=== PATIENT | male | born 1950 | race Caucasian/White ===

== ENCOUNTER 2019-03-12 13:27 | Inpatient (IN) ==
[2019-03-12 14:31] LABS: ALLEN TEST YES; BE -4.7 mmoll (-3.0-3.0); BLOOD TYPE ARTERIAL; METHB 1.3 % (0.0-1.5); O2(CT) 18.6 mL/dL (15.0-23.0); PCO2(98.6) 34 mmHg (35-45); PO2(98.6) 55 mmHg (60-100); SAMPLE BLOOD; SAO2 92.6 % (95.0-100.0); pH(98.6) 7.37 (7.35-7.45)
[2019-03-12 14:33] LABS: MODALITY ROOM AIR
[2019-03-12 14:34] LABS: O2HB 88.5 % (95.0-99.0)
--- NOTE | 2019-03-12 14:34 | Diag Imaging Result Doc PS360 ---
CT HEAD W/O CONTRAST - 03/12/2019 INDICATION: Head injury COMPARISON: None FINDINGS: There is moderate diffuse cerebral atrophy. There is mild cerebral white matter chronic microvascular ischemia. There are old lacunae in the basal ganglia bilaterally. There is also a lacunar at the left side of the mel. No intracranial mass or hemorrhage. The skull is intact. The sinuses, mastoids, and middle ears are clear. IMPRESSION: No acute process. This exam was performed using automated exposure control, adjustment of mA or kV according to patient size, and/or use of iterative reconstruction technique Electronically signed by Bk Lau 03/12/2019 2:32 PM
--- NOTE | 2019-03-12 14:41 | Diag Imaging Result Doc PS360 ---
CHEST-PORTABLE - 03/12/2019 INDICATION: altered MSE, cough, ? fever COMPARISON: 03/08/2015 FINDINGS: The lungs are normally expanded and clear. Heart size and mediastinal contours are normal. No pneumothorax or pleural effusion. IMPRESSION: Negative exam. Electronically signed by Bk Lau 03/12/2019 2:39 PM
[2019-03-12 14:54] LABS: BASO# 0.01 X1000 (0.0-0.2); BASO% 0.1 % (0.0-0.8); EOS# 0.01 X1000 (0.0-0.7); EOS% 0.1 % (0.0-10.0); HEMOGLOBIN 14.5 g/dL (14.0-18.0); IMM GRAN# 0.03 X1000 (0.0-0.04); IMM GRAN% 0.3 % (0.0-0.5); LYMPH# 0.74 X1000 (1.2-3.4); LYMPH% 6.8 % (20.5-51.1); MCH 31.7 PG (27-31); MCV 96.3 FL (81-99); MONO% 5.5 % (1.7-9.3); MPV 9.6 FL (7.4-10.4); NEUT# 9.43 X1000 (1.4-6.5); NEUT% 87.2 % (42.2-75.2); PLT 227 X1000 (130-400); RBC 4.57 XMIL (4.7-6.1); RDW 12.7 % (11.5-14.5); WBC 10.82 X1000 (4.8-10.8)
[2019-03-12 15:12] LABS: INR 1.14; PROTIME 14.8 Seconds (11.0-16.0); PTT 27.2 Seconds (22.3-41.8)
[2019-03-12 15:33] LABS: AGAP 20; ALB/GLOB RATIO 1.5; ALBUMIN 4.6 g/dL (3.5-5.0); ALKALINE PHOSPHATASE 109 U/L (32-122); BUN 10 mg/dL (8-22); CALCIUM 9.3 mg/dL (8.8-10.2); CHLORIDE 97 mmol/L (98-107); COSMO 282; ESTIMATED GFR > 60; GLUCOSE 236 mg/dL (70-104); GOT 27 U/L (10-34); GPT 16 U/L (10-44); POTASSIUM 3.8 mmol/L (3.5-5.1); SODIUM 138 mmol/L (136-145); TCO2 21 mmol/L (25-35); TOTAL BILIRUBIN 0.63 mg/dL (0.20-1.00); TOTAL PROTEIN 7.7 g/dL (6.3-8.3)
[2019-03-12 15:34] LABS: CK PROFILE 720 U/L (24-204)
[2019-03-12 15:49] LABS: CK INDEX 1.8 (0.0-2.5); CK-MB 12.64 ng/mL (0.0-5.0)
[2019-03-12 16:34] LABS: URINE SOURCE CLEAN CATCH
[2019-03-12 16:39] LABS: BILIRUBIN URINE NEGATIVE (NEGATIVE); BLOOD URINE TRACE (NEGATIVE); COLOR YELLOW; GLUCOSE URINE 500 mg/dL (NEGATIVE); KETONE URINE 20 mg/dL (NEGATIVE); LEUKOCYTES URINE NEGATIVE (NEGATIVE); NITRITE URINE NEGATIVE (NEGATIVE); PROTEIN URINE TRACE mg/dL (NEGATIVE); SP GRAVITY URINE 1.019; TURBIDITY URINE HAZY (CLEAR); UR EPITHELIAL CELLS <10 /HPF (<10); URINE BACTERIA NEGATIVE /HPF; URINE RBC <10 /HPF (<10); URINE WBC <10 /HPF (<10); UROBILINOGEN URINE NORMAL (NORMAL)
[2019-03-12 16:58] LABS: UR AMPHETAMINES QUAL NONE DETECTED (NONE DETECT); UR BARBITUATES QUAL NONE DETECTED (NONE DETECT); UR BENZODIAZEPIN QUAL NONE DETECTED (NONE DETECT); UR CANNABINOIDS QUAL NONE DETECTED (NONE DETECT); UR COCAINE QUAL NONE DETECTED (NONE DETECT); UR METHADONE QUAL NONE DETECTED (NONE DETECT); UR OPIATES QUAL PRESUMPTIVE POSITIVE (NONE DETECT); UR OXYCODONE QUAL NONE DETECTED (NONE DETECT); UR PCP QUAL NONE DETECTED (NONE DETECT)
[2019-03-12] MEDS ORDERED: ZOSYN 3.375 GM in NS 50 ML IV ONE (17:00)
--- NOTE | 2019-03-12 19:05 | Diag Imaging Result Doc PS360 ---
CT ANGIOGRM PULMONARY ARTERIES - 03/12/2019 INDICATION: hypoxemia, altered TECHNIQUE: Axial CT images were obtained after administering intravenous contrast. Coronal MIP images were generated. COMPARISON: None FINDINGS: There is no pulmonary embolism. Heart and great vessels are normal. No adenopathy. Upper abdominal images are normal. There is moderate fluid/mucus opacification of all the bronchi of the lower lobes bilaterally. There is also some fluid or mucus in the distal trachea. No infiltrates throughout the lungs. No pneumothorax or pleural effusion. There are moderate degenerative changes of the spine. No acute or suspicious bony lesion. IMPRESSION: Significant fluid or mucus in the distal trachea and in the lower lobe airways bilaterally. Concerning for aspiration. No infiltrates in the lungs. Negative for pulmonary embolism. This exam was performed using automated exposure control, adjustment of mA or kV according to patient size, and/or use of iterative reconstruction technique Electronically signed by Bk Lau 03/12/2019 7:02 PM
[2019-03-12] MEDS ORDERED: NEURONTIN PO SCH (21:15)
[2019-03-12] MEDS ORDERED: NS 1,000 ML IV SCH (21:30)
[2019-03-12 23:20] LABS: CK INDEX 1.9 (0.0-2.5); CK-MB 12.26 ng/mL (0.0-5.0)
[2019-03-13] MEDS: ZOSYN 3.375 GM in NS 50 ML IV SCH ×4 (00:34→20:36)
[2019-03-13] MEDS: PROTONIX IV SCH ×2 (00:35→20:36)
--- NOTE | 2019-03-13 07:34 | HISTORY AND PHYSICAL ---
CHIEF COMPLAINT: Loss of consciousness. HISTORY OF PRESENT ILLNESS: Mr. Beth Marin is a 68-old male, who has a history of hypertension, diabetes mellitus, hyperlipidemia, and peripheral neuropathy. The patient gives a history of loss of consciousness, which occurred prior to admission via the ER. It is not exactly known when this occurred. The patient indicates that he was brought to the ER by EMS. He describes having confusion, headaches but no dizziness. He does have a number of bruises on his forehead. He claims that the loss of consciousness may have been related to gabapentin which he took. On presenting to the hospital, CT scan of the brain was unremarkable. . He had a CTA of the chest done also at the time of presentation which showed evidence of significant fluid or mucus in the distal trachea and in the lower lobe airways bilaterally concerning for aspiration. The patient has now been admitted to the floor for further management. PAST MEDICAL HISTORY: Diabetes mellitus, hypertension, hyperlipidemia, and peripheral neuropathy. SOCIAL HISTORY: He has a history of cigarette smoking. No alcohol or drug use. ALLERGIES: The patient is allergic to aspirin as well as gabapentin. PAST SURGICAL HISTORY: He has had left knee surgery and also rotator cuff surgery to the left shoulder. FAMILY HISTORY: Positive for cancer. MEDICATIONS: His medications include the following: Lorazepam 1 mg p.o. 3 times a day. Trazodone 200 mg p.o. at bedtime p.r.n Folic acid 1 mg p.o. daily. Gabapentin 200 mg p.o. 3 times a day. Lisinopril 40 mg p.o. daily. Multivitamin one daily. Paroxetine 20 mg p.o. daily. REVIEW OF SYSTEMS: Constitutional: No fever. S[employer]ACH[employer]ER: No headaches. Eyes: No blurred vision. Cardiovascular: No chest pain. Respiratory: Has some chronic shortness of breath. GI: Has nausea. : Has dysuria. Musculoskeletal: No joint pains. Hematology: Has bruising on the forehead. Endocrine: Has diabetes. No thyroid disease. Psychiatry: No anxiety or depression. Allergy/immunology: Has allergy symptoms. PHYSICAL EXAMINATION: VITAL SIGNS: Temperature 99.2 degrees, pulse 79, respiratory rate is 16, blood pressure is 164/81, oxygen saturation is 95%. HEENT: The patient has bruises on the forehead. He is anicteric. Extraocular movements intact. No oral lesions noted. NECK: No lymphadenopathy or thyromegaly. CARDIOVASCULAR: S1, S2. RESPIRATORY SYSTEM: Has evidence of good air entry bilaterally. ABDOMEN: Soft. Nontender. No masses felt. EXTREMITIES: No evidence of significant edema. CENTRAL NERVOUS SYSTEM: No obvious focal deficits noted. DIAGNOSTIC DATA: WBCs 10.82, hematocrit is 44, with a platelet count of 227,000. INR is 1.14. ABG 7.37/34/55/92.6%. Sodium 138, potassium is 3.8, chloride is 97, bicarb is 21, BUN is 10, creatinine is 1.0. CK is 662. Lactate is 6.2. UA shows less than 10 WBCs per high-power field. Urine drug screen positive for opiates. CTA of the chest shows significant fluid or mucus in the distal trachea as well as the lower the lower lobe airways bilaterally concerning for aspiration. Head CT, no acute process. Chest x-ray, negative exam. ASSESSMENT AND PLAN: 1. Syncope. Place the patient on telemetry and get serial cardiac enzymes. Maintain patient on intravenous fluids. Obtain an MRI of the brain, carotid Doppler study, EEG, as well as a 2D echo of the heart. I suspect this may be related to medication effect including gabapentin as well as lorazepam. We will hold off on both medications at this time. 2. Probable aspiration pneumonia. We will obtain sputum culture, blood culture, start patient on empiric antibiotics. 3. Rhabdomyolysis. Maintain patient on intravenous fluids. Follow up on CK levels. 4. Diabetes mellitus. Monitor blood sugar levels. Maintain patient on sliding scale insulin. Check hemoglobin A1c level. 5. Hypertension. Continue current antihypertensive regimen. 6. Deep vein thrombosis prophylaxis. Sequential compression devices. 7. Gastrointestinal prophylaxis. Proton pump inhibitor. cc: Rodrick Allen MD [facility]
--- NOTE | 2019-03-13 07:40 | EKG Report ---
Test Performed on : 03/13/2019 07:23:53 AM Test Reason : syncope Blood Pressure : / mmHG Vent. Rate : 091 BPM Atrial Rate : 091 BPM P-R Int : 134 ms QRS Dur : 102 ms QT Int : 382 ms P-R-T Axes : 050 042 066 degrees QTc Int : 469 ms Normal sinus rhythm. Normal ECG No previous ECGs available Confirmed by Juan LOAIZA, Ranjit ([id number]) on 03/14/2019 10:35:11 AM
[2019-03-13] MEDS: NS 1,000 ML IV SCH ×3 (08:00→23:15)
[2019-03-13 09:16] LABS: CK INDEX 1.3 (0.0-2.5); CK-MB 11.18 ng/mL (0.0-5.0)
[2019-03-13] MEDS: PRINIVIL PO SCH ×2 (10:14→10:17)
[2019-03-13] MEDS: TENORMIN PO SCH (10:14)
[2019-03-13] MEDS: FOLIC ACID PO SCH (10:14)
[2019-03-13] MEDS: THERA M PLUS PO SCH (10:14)
--- NOTE | 2019-03-13 10:35 | PROGRESS NOTE ---
DATE: 03/13/2019 SUBJECTIVE: The patient had a syncopal episode that quite possibly was a seizure. He tells me that his says that he was shaking all over. He does not remember a whole lot about it. Apparently, he was lying on the floor for a little while, and had what appears to be some rhabdomyolysis. Said he had a similar episode a couple of weeks ago that a neighbor saw, and that he shook all over at that time too. He was admitted yesterday for syncope and rhabdomyolysis. He has not mentioned seizures to anyone else before, has not mentioned this to Dr. Pope, his regular doctor. He says he does not drink alcohol. He has not had any brain injury that he knows of. MRI scan has already been ordered. Will order an EEG and Neurology consult. The patient says he has had this when he is taking gabapentin, and he had some sort of syncopal episode about a year ago when he took gabapentin for his peripheral neuropathy. He also takes Ativan. OBJECTIVE: Vital Signs: Blood pressure is 150/91, respirations 16, pulse 84, temperature 98.8 degrees Fahrenheit. HEENT: Normocephalic. EOMs intact. PERRLA. Throat clear. Lungs: Have a few rales anteriorly. Pulmonary arteriogram showed mucous plugging in the lungs, consistent with aspiration. Heart: Regular rate and rhythm without murmurs, gallops, friction rubs. Abdomen: Soft. Active bowel sounds. No organomegaly or tenderness. Neurological: The patient is a little slow with his thinking, but otherwise seems normal. Cranial nerves II through XII are intact grossly. LABORATORY DATA: White count 10,820. His blood gas when he came in showed a PO2 of 55, pCO2 of 34. Lactate elevated at 5.10. He is on antibiotics. Plasma lactate was 6.2. Urinalysis did show sugar. He does have diabetes. ASSESSMENT: 1. Syncope, quite possibly a grand mal seizure. 2. Possible aspiration pneumonia. 3. Rhabdomyolysis. 4. Diabetes mellitus. 5. Hypertension. PLAN: Will order things as above, and will monitor. Will give him IV fluids and IV antibiotics. cc: Jordi Sewell Jr, MD
[2019-03-13] MEDS: HUMULIN R SUBQ SCH ×2 (13:14→17:23)
[2019-03-13 13:54] LABS: CK INDEX 1.3 (0.0-2.5); CK-MB 10.67 ng/mL (0.0-5.0)
[2019-03-13] MEDS: SODIUM CHLORIDE 0.9% INJ SCH (20:36)
[2019-03-13] MEDS: PAXIL PO SCH (20:36)
[2019-03-14] MEDS: HUMULIN R SUBQ SCH ×5 (01:02→23:00)
[2019-03-14] MEDS: ZOSYN 3.375 GM in NS 50 ML IV SCH ×4 (03:53→20:18)
[2019-03-14] MEDS: LABETALOL IV PRN (05:14)
[2019-03-14] MEDS: PRINIVIL PO SCH (09:04)
[2019-03-14] MEDS: THERA M PLUS PO SCH (09:04)
[2019-03-14] MEDS: FOLIC ACID PO SCH (09:05)
[2019-03-14] MEDS: TENORMIN PO SCH (09:05)
[2019-03-14] MEDS: NS 1,000 ML IV SCH ×3 (09:06→23:00)
--- NOTE | 2019-03-14 11:28 | Diag Imaging Result Doc PS360 ---
EXAM: MRI BRAIN W/O CONTRAST HISTORY: syncope TECHNIQUE: MRI brain without contrast. COMPARISON: None. FINDINGS: Axial T1, T2, and FLAIR weighted images obtained in addition to sagittal T1-weighted images. The patient refused the remainder of the procedure. The ventricular system is prominent. There are chronic microvascular ischemic changes. Old left basal ganglia lacunar infarct. 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 No mass or midline shift. No epidural or subdural fluid collection. No sinus opacification. IMPRESSION: Incomplete study with chronic microvascular ischemic changes and small old lacunar infarcts. Electronically signed by Jorge Damon 03/14/2019 11:26 AM
--- NOTE | 2019-03-14 13:06 | EEG REPORT ---
DATE: 03/13/2019 COMMENT: This is a digitally recorded EEG on a 68-year-old patient with recent episode of altered awareness and collapse, question of seizure. FINDINGS: During waking, medium and higher amplitude 9 Hz posterior rhythm is present bilaterally with uncertain reactivity to eye opening. The background contains polymorphic and rhythmic theta frequencies over the frontal and central regions symmetrically. Drowsing occurred with the appearance of more generalized slowing and attenuation of the posterior rhythm. Stage 2 sleep was not recorded. Photic stimulation produced some symmetric entrainment. Throughout the record, there are muscle contraction, head movement artifact, eye blink artifacts which are sometimes accompanied by sharply contoured waveforms on the EEG, but there was never definite epileptiform discharge or anything that could be clearly distinguished as abnormality on the EEG. INTERPRETATION: Normal EEG. CORRELATION: The absence of epileptiform discharges on a single EEG does not exclude a clinical diagnosis of seizure, but there is nothing on this record to suggest the presence of a seizure disorder. cc: MD Jordi Martinez III, Jr, MD MTDD
--- NOTE | 2019-03-14 13:16 | CONSULTATION ---
DATE OF CONSULTATION: 03/14/2019 LOCATION: Room 425B. HISTORY OF PRESENT ILLNESS: Mr. Marin is 68 years old, and he had recent episode of collapse. I have reviewed the history recorded on admission. His report to me today is that he decided to take a gabapentin capsule that was not prescribed for him. He reports this was a "white capsule" (indicating likely either 100 mg or 400 mg capsule). Within a few minutes, he began to feel odd and lightheaded. About 20 minutes after the dose, he apparently collapsed. He believes he can remember beginning to fall and sitting down hard on the floor. There is a gap in his memory. He regained consciousness spontaneously. He felt a little bit weak all over, but there was nothing focal. He does not think he was disoriented. He believes the episode may have been witnessed by a neighbor. He believes this episode was identical to a spell he had several months ago, and he believes that also followed a single dose of gabapentin. He reports he has not taken gabapentin at any other time. He reports he has not had a spell of collapse, altered awareness, or unconsciousness at any other time. There was no prior diagnosed seizure, stroke, serious head injury, other neurologic event. He reports prior history of alcohol misuse. He reports no recent alcohol ingestion, and he is certain alcohol was not responsible for recent episodes. He denies illicit drug use. He reports no benzodiazepine or opiate use. Urine drug screen was negative for benzodiazepine, and positive for opiates this admission. Other lab work this admission showed mildly elevated blood sugars, elevated CK 662 and then 814, lactate 6.2. He has been afebrile here. Heart rate was initially 107-108, but recently 60s to 80s. Systolic blood pressures ranged 150-200. Noncontrast CT shows old basal ganglia lacunes bilaterally. Brain MRI just completed shows similar findings with nothing else remarkable. Electroencephalogram yesterday was not definitely remarkable. Past history is remarkable for hypertension, diabetes mellitus, peripheral neuropathy, dyslipidemia. He believes that he does not take medicine for lipid control. He reports he takes 2 blood pressure pills, and 1 of them is lisinopril, and he cannot name the other. Computer record shows home medicine list includes atenolol and lisinopril. He reports taking paroxetine. On exam, Mr. Marin is awake, alert, attentive, oriented. He is a little bit tremulous. There is no classifiable tremor. There is no cogwheeling or rigidity. He did well on rutzgi-al-ryjn testing bilaterally. Strength is normal and symmetric in the arms and legs. He reports symmetric sensation on brief testing over the limbs. I did not test his gait. Extraocular movements are full. Facial motility is symmetric. Facial sensation is intact. Gag is intact. Tongue is midline. Hearing is good. Shoulder shrug is equal. He has some resolving abrasion and ecchymosis around the forehead. There is no skull defect. Neck is supple without meningismus. IMPRESSION: Recent episode of collapse, uncertain etiology. His report that he remembers falling, remembers sitting down hard, and then was immediately aware as he recovered consciousness is not typical of seizure. I do not have a firsthand witness account of the episode, and I am not certain his history is accurate. His report that this episode followed a short time after gabapentin ingestion and that he had a similar spell with similar gabapentin dose several months ago is noted. It seems reasonable to recommend he not take gabapentin. However, I do not have a definite explanation for this episode, and I cannot establish a definite relationship to the gabapentin dose. There is some discrepancy in the home medication list and his urine drug screen. This may or may not be significant. He does seem a little bit tremulous now, and there was initial tachycardia, which would be consistent with a withdrawal syndrome. I do not have any other suggestion from a Neurology standpoint. I advised him to be careful with his activities, to take his medicines as directed, to avoid gabapentin, and to keep followup with Dr. Pope. If he has any more neurologic problem, I will be glad to see him again. Thank you for asking Neurology to see Mr. Marin. cc: MD PARRIS Martinez III
--- NOTE | 2019-03-14 14:39 | ECHO REPORT ---
ORDER DATE: 03/12/2019 INTERPRETING PHYSICIAN: Deandre Serra MD. ECHOCARDIOGRAPHIC MEASUREMENTS: 1. Interventricular septum 1.5. 2. Left ventricular posterior wall 1.4. 3. Diastolic diameter 3.8. 4. Left atrium 3.6. 5. Aorta 3.0. FINDINGS: 1. Aortic valve leaflets are trileaflet. 2. Pulmonic valve was normal. 3. Tricuspid valve was normal. 4. Mitral valve was normal. 5. There is mild tricuspid regurgitation. Peak velocity across the tricuspid valve less than 2 m/sec. 6. There is mild mitral regurgitation. 7. Peak velocity across the aortic valve less than 2 m/sec. There is no aortic stenosis or regurgitation. 8. There is grade 1 diastolic dysfunction. 9. Normal left ventricular cavity size. Estimated ejection fraction of 55%. There is asymmetric left ventricular hypertrophy in addition to concentric left ventricular hypertrophy. 10. There is no pericardial effusion or obvious intracardiac mass or thrombus. cc: MD Rodrick Guerrero MD
[2019-03-14] MEDS: SODIUM CHLORIDE 0.9% INJ SCH (20:18)
[2019-03-14] MEDS: PAXIL PO SCH (20:18)
[2019-03-14] MEDS: PROTONIX IV SCH ×2 (20:18→23:00)
--- NOTE | 2019-03-14 21:04 | PROGRESS NOTE ---
DATE: 03/14/2019 SUBJECTIVE: 68-year-old white male was admitted to the hospital on 03/13/2019, with syncope, with extensive bruises noted on the forehead, aspiration pneumonia. He had a questionable seizure. Interval history was reviewed. The patient was seen by Dr. Quezada. Appreciated his input. He was seen in my office in July 2018 for annual exam. Patient is smoking. He is on nicotine patch. He has some cough. Is getting IV fluids. He has known history of diabetes. Not taking medications and not reconciled. He denies of any headache or focal symptoms. PAST MEDICAL HISTORY: Reviewed. PAST SURGICAL HISTORY: Reviewed. MEDICINES: Reviewed. ALLERGIES: Reported to questionable aspirin. PHYSICAL EXAMINATION: Vital signs: Temperature 98.6 degrees, pulse 88, blood pressure 160/77, 98% on room air. HEENT: Multiple bruises noted. Neck: Supple. Chest: Some rhonchi. Heart: Sounds are regular. Abdomen: Belly is soft, nontender. Extremities: He has bruises noted on both knees. Neurologic: No obvious neurological deficits. INVESTIGATIONS: White cell count 10, hematocrit 44, platelets 227,000. PT/INR is normal. ABGs: pH is 7.37, pCO2 34, pO2 55. Lactate is 5.1, carboxyhemoglobin 3.1. SMA 7 is normal. CK was high. Index is negative. Troponin was negative. Urinalysis negative and urine toxicology screen positive for opiates. Plasma serum ethyl alcohol none detected. EKG: Sinus tachycardia, inferior Q-waves. Echocardiography report: LV function is 55%, asymmetric LV hypertrophy. No valvular heart disease seen. MRI of the brain: Old small lacunar infarcts. CT pulmonary angiogram: Significant fluid mucus in the distal trachea. Possible aspiration. Negative for pulmonary embolism. CT head: No acute process. Chest x-ray: History of C-spine surgery, bilateral shoulder surgeries, nothing acute. Telemetry strips: Normal sinus. ASSESSMENT AND PLAN: 1. Syncope, questionable seizure. EEG was negative. Old lacunar infarcts. 2. Mild rhabdomyolysis. Will treat with intravenous fluids, 80 mL an hour. 3. Aspiration pneumonia. Intravenous Zosyn. 4. Chronic depression,, on Paxil. 5. Type 2 diabetes, on sliding scale with insulin. 6. Hypertension. In my office, he was on lisinopril 40 daily and Norvasc 10 mg daily. 7. He is on metformin 500 two tablets p.o. b.i.d. 8. History of overdose with Xanax in the past. He is not taking. 9. Chronic pain neuropathy, on tramadol with Dr. Obrien. He did not go for labs in 2019 in July. 10. Last tetanus shot was given 2009. 11. Will check the labs in the morning and etiology to be determined. Apparently, it happened after taking gabapentin. 12. Rule out cardiac arrhythmias. Continue to monitor in telemetry. 13. Will also get carotid Dopplers and will follow up. LEVEL OF DOCUMENTATION: 35 minutes. cc: Dilan Pope MD
[2019-03-15] MEDS: ZOSYN 3.375 GM in NS 50 ML IV SCH ×4 (01:40→21:05)
[2019-03-15] MEDS: LABETALOL IV PRN (02:11)
[2019-03-15] MEDS: HUMULIN R SUBQ SCH ×4 (06:22→21:00)
[2019-03-15 07:17] LABS: BASO# 0.02 X1000 (0.0-0.2); BASO% 0.3 % (0.0-0.8); EOS# 0.06 X1000 (0.0-0.7); EOS% 0.8 % (0.0-10.0); HEMATOCRIT 41.9 % (42.0-52.0); HEMOGLOBIN 13.7 g/dL (14.0-18.0); LYMPH# 1.78 X1000 (1.2-3.4); LYMPH% 23.7 % (20.5-51.1); MCH 31.4 PG (27-31); MCHC 32.7 g/dL (33-37); MCV 96.1 FL (81-99); MONO# 0.53 X1000 (0.11-0.59); MONO% 7.1 % (1.7-9.3); MPV 9.9 FL (7.4-10.4); NEUT# 5.11 X1000 (1.4-6.5); NEUT% 68.1 % (42.2-75.2); PLT 222 X1000 (130-400); RBC 4.36 XMIL (4.7-6.1); RDW 12.7 % (11.5-14.5)
[2019-03-15 07:25] LABS: HEMOGLOBIN A1C 7.2 % (4.8-6.0)
--- NOTE | 2019-03-15 07:25 | EKG Report ---
Test Performed on : 03/15/2019 07:14:37 AM Test Reason : cp Blood Pressure : / mmHG Vent. Rate : 056 BPM Atrial Rate : 056 BPM P-R Int : 144 ms QRS Dur : 094 ms QT Int : 428 ms P-R-T Axes : 052 015 034 degrees QTc Int : 413 ms Sinus bradycardia. with marked sinus arrhythmia. Otherwise normal ECG When compared with ECG of 13-MAR-2019 07:23, Vent. rate has decreased BY 35 BPM QT has shortened Confirmed by Juan LOAIZA, Ranjit ([id number]) on 03/15/2019 11:25:48 AM
[2019-03-15 07:29] LABS: AGAP 12; BUN 7 mg/dL (8-22); CALCIUM 8.6 mg/dL (8.8-10.2); CHLORIDE 101 mmol/L (98-107); CHOLESTEROL 138 mg/dL (0-200); COSMO 273; CREATININE 0.8 mg/dL (0.7-1.2); ESTIMATED GFR > 60; GLUCOSE 123 mg/dL (70-104); HDL 29 mg/dL (35-55); LDL 87 mg/dL; POTASSIUM 3.2 mmol/L (3.5-5.1); SODIUM 137 mmol/L (136-145); TCO2 24 mmol/L (25-35); TRIGLYCERIDES 111 mg/dL (39-160); VLDL 22 mg/dL
[2019-03-15 07:38] LABS: CK PROFILE 322 U/L (24-204)
[2019-03-15] MEDS ORDERED: KLOR-CON PO ONE (07:43)
[2019-03-15 07:59] LABS: CK INDEX 1.7 (0.0-2.5); CK-MB 5.46 ng/mL (0.0-5.0)
[2019-03-15] MEDS: PRINIVIL PO SCH (09:18)
[2019-03-15] MEDS: THERA M PLUS PO SCH (09:19)
[2019-03-15] MEDS: FOLIC ACID PO SCH (09:19)
[2019-03-15] MEDS: TENORMIN PO SCH (09:19)
[2019-03-15] MEDS: NS 1,000 ML IV SCH ×2 (12:18→12:19)
--- NOTE | 2019-03-15 12:47 | PROGRESS NOTE ---
DATE: 03/15/2019 SUBJECTIVE: Mr. Marin reports no further episodes of syncope, altered awareness, collapse. OBJECTIVE: He is awake, alert, attentive. Speech is not dysarthric. Language function is intact on brief bedside testing. He is less tremulous today. PLAN: I do not have anything to add today from Neurology standpoint. I agree with Dr. Pope's plans to continue cardiac monitoring to evaluate for possible arrhythmia as explanation for episode. I will be glad to see Mr. Marin again, if needed. cc: MD Dilan Martinez III, MD [facility]
[2019-03-15] MEDS ORDERED: NORVASC PO ONE (19:03)
--- NOTE | 2019-03-15 19:36 | PROGRESS NOTE ---
DATE: 03/15/2019 SUBJECT: I spoke extensively about his syncope and injuries with rule out cardiac arrhythmias. REVIEW OF SYSTEMS: None reported. EXAM: Temperature is 98 degrees, pulse is 53, blood pressure is 118/69.HEENT: Within normal limits. Neck: Supple. Chest: Bilateral air entry. Rhonchi. Heart: Sounds are regular in sinus bradycardia. No obvious neurological deficits. LABS: CBC: White cell count 7.5, hematocrit 41.9, platelets 222,000. Sodium 137, potassium 3.2, chloride 101, BUN 123, A1c 7.2. CK was coming down. HDL is 29. ASSESSMENT AND PLAN: 1. Syncope, rule out cardiac arrhythmias. Discontinue atenolol, will started on Norvasc along with lisinopril for blood pressure. Continue equipment monitor phototypesetting. 2. Aspiration pneumonia on the right side. Continue IV antibiotics with Zosyn. 3. Depression on Paxil. 4. Mild rhabdo is better. Continue IV fluids. Advance the diet with [place] [employer] diet. 5. Type 2 diabetes. Will start on metformin. 6. Gastrointestinal prophylaxis with IV Protonix and all the neuro workup was negative and will continue to follow up. 7. Hypokalemia. Replace the potassium. LEVEL OF DOCUMENTATION: 25 minutes. cc: Dilan Pope MD
[2019-03-15] MEDS: SODIUM CHLORIDE 0.9% INJ SCH (20:46)
[2019-03-15] MEDS: PAXIL PO SCH (20:47)
[2019-03-15] MEDS: PROTONIX IV SCH (20:47)
[2019-03-15] MEDS: NORVASC PO SCH (21:04)
[2019-03-16] MEDS: ZOSYN 3.375 GM in NS 50 ML IV SCH ×4 (01:59→21:00)
[2019-03-16] MEDS: LABETALOL IV PRN (04:47)
[2019-03-16] MEDS: HUMULIN R SUBQ SCH ×4 (06:25→21:54)
[2019-03-16] MEDS: PRINIVIL PO SCH (08:04)
[2019-03-16] MEDS: GLUCOPHAGE PO SCH ×2 (08:04→16:54)
[2019-03-16] MEDS: NORVASC PO SCH (08:05)
[2019-03-16] MEDS: THERA M PLUS PO SCH (08:05)
[2019-03-16] MEDS: FOLIC ACID PO SCH (08:05)
--- NOTE | 2019-03-16 10:04 | Carotid Study ---
DATE: 03/16/2019 FINDINGS: Velocities are noted. The right internal to common carotid ratio shows 0.9, left 0.5. Percent stenosis is 0% to 39% on the right and 0% to 39% on the left. INTERPRETATION: No significant plaque disease identified. There is antegrade vertebral flow bilaterally. cc: MD Rodrick Kumari MD Jagan Reddy, MD
--- NOTE | 2019-03-16 13:41 | PROGRESS NOTE ---
DATE: 03/16/2019 SUBJECTIVE: The patient is a little better and heart rate is 89. I discontinued the metoprolol. He is not able to ambulate. PHYSICAL EXAMINATION: Vital signs: Temperature is 98 degrees, pulse is 89, blood pressure is 154/70. Skin: He had multiple bruises noted. Neck: Supple. Chest: Clear. Heart: Sounds are regular. Abdomen: Belly is soft, nontender. Neurologic: No obvious deficits. LABORATORY DATA: None reported. ASSESSMENT AND PLAN: 1. Syncope. Rule out cardiac arrhythmias. Discontinue metoprolol. 2. Hypertension, on Norvasc and lisinopril. 3. Type 2 diabetes, on metformin and advance the diet and out of the bed with Physical Therapy. 4. Aspiration pneumonia, IV Zosyn. 5. Depression, on Paxil, and if it continues to improve, we will discharge in the next couple of days. LEVEL OF DOCUMENTATION: 25 minutes. cc: Dilan Pope MD
[2019-03-16] MEDS: NS 1,000 ML IV SCH ×2 (16:54→21:52)
[2019-03-16] MEDS: PAXIL PO SCH (21:53)
[2019-03-16] MEDS: SODIUM CHLORIDE 0.9% INJ SCH (21:53)
[2019-03-16] MEDS: PROTONIX IV SCH (21:53)
[2019-03-17] MEDS: ZOSYN 3.375 GM in NS 50 ML IV SCH ×4 (04:37→20:17)
[2019-03-17] MEDS: NS 1,000 ML IV SCH ×2 (04:38→13:12)
[2019-03-17] MEDS: HUMULIN R SUBQ SCH ×4 (07:08→20:18)
[2019-03-17] MEDS: GLUCOPHAGE PO SCH ×2 (08:01→18:11)
[2019-03-17] MEDS: NORVASC PO SCH (08:01)
[2019-03-17] MEDS: FOLIC ACID PO SCH (08:01)
[2019-03-17] MEDS: THERA M PLUS PO SCH (08:01)
[2019-03-17] MEDS: PRINIVIL PO SCH (08:01)
--- NOTE | 2019-03-17 13:19 | PROGRESS NOTE ---
DATE: 03/17/2019 SUBJECTIVE: The patient is doing better. REVIEW OF SYSTEMS: None reported. PHYSICAL EXAMINATION: On examination, temperature is 98 degrees, pulse is 75, blood pressure is running a little bit high. He is not orthostatic. HEENT Examination: Within normal limits. Chest: Clear. Heart sounds are regular. Belly is soft, nontender. No obvious deficits. ASSESSMENT AND PLAN: 1. Syncope, rule out cardiac dysrhythmias. 2. Hypertension. Continue on Norvasc and lisinopril. 3. Depression, on Paxil. 4. Mild rhabdomyolysis, is better. 5. Diabetes. Started on metformin. 6. Aspiration pneumonia, on Zosyn. 7. We will check the labs in the morning and we will discharge if stable. LEVEL OF DOCUMENTATION: 25 minutes. cc: Dilan Pope MD
[2019-03-17] MEDS: SODIUM CHLORIDE 0.9% INJ SCH (20:17)
[2019-03-17] MEDS: PROTONIX IV SCH ×2 (20:17→23:47)
[2019-03-17] MEDS: PAXIL PO SCH (20:17)
[2019-03-18] MEDS: NS 1,000 ML IV SCH (02:33)
[2019-03-18] MEDS: ZOSYN 3.375 GM in NS 50 ML IV SCH ×2 (02:33→09:40)
[2019-03-18 07:13] VITALS: BP 174/72
[2019-03-18 07:20] LABS: BASO# 0.02 X1000 (0.0-0.2); BASO% 0.3 % (0.0-0.8); EOS# 0.17 X1000 (0.0-0.7); EOS% 2.3 % (0.0-10.0); HEMATOCRIT 44.6 % (42.0-52.0); LYMPH# 1.44 X1000 (1.2-3.4); LYMPH% 19.3 % (20.5-51.1); MCH 31.9 PG (27-31); MCHC 33.6 g/dL (33-37); MCV 94.9 FL (81-99); MPV 9.8 FL (7.4-10.4); NEUT# 5.23 X1000 (1.4-6.5); NEUT% 70.1 % (42.2-75.2); PLT 243 X1000 (130-400); RDW 12.8 % (11.5-14.5); WBC 7.46 X1000 (4.8-10.8)
[2019-03-18] MEDS: HUMULIN R SUBQ SCH (07:22)
[2019-03-18 07:30] LABS: AGAP 19; ALB/GLOB RATIO 1.1; ALBUMIN 4.1 g/dL (3.5-5.0); ALKALINE PHOSPHATASE 93 U/L (32-122); BUN 10 mg/dL (8-22); CALCIUM 8.8 mg/dL (8.8-10.2); CHLORIDE 100 mmol/L (98-107); CK PROFILE 130 U/L (24-204); COSMO 279; CREATININE 0.8 mg/dL (0.7-1.2); ESTIMATED GFR > 60; GLUCOSE 113 mg/dL (70-104); GOT 27 U/L (10-34); GPT 22 U/L (10-44); POTASSIUM 3.1 mmol/L (3.5-5.1); SODIUM 140 mmol/L (136-145); TCO2 21 mmol/L (25-35); TOTAL BILIRUBIN 0.84 mg/dL (0.20-1.00); TOTAL PROTEIN 7.9 g/dL (6.3-8.3)
[2019-03-18] MEDS ORDERED: KLOR-CON POWDER PACKET PO ONE (08:06)
[2019-03-18] MEDS: PRINIVIL PO SCH (09:39)
[2019-03-18] MEDS: GLUCOPHAGE PO SCH (09:39)
[2019-03-18] MEDS: THERA M PLUS PO SCH (09:39)
[2019-03-18] MEDS: NORVASC PO SCH (09:39)
[2019-03-18] MEDS: FOLIC ACID PO SCH (09:39)
--- NOTE | 2019-03-19 09:22 | DISCHARGE SUMMARY ---
ADMISSION DATE: 03/12/2019 DISCHARGE DATE: 03/18/2019 DISCHARGING DIAGNOSIS: Syncope, etiology to be determined, rule out cardiac arrhythmias. SECONDARY DIAGNOSES: 1. Mild rhabdomyolysis. 2. Type 2 diabetes. 3. Hypertension. 4. Hyperlipidemia. 5. Peripheral neuropathy. 6. Chronic depression. 7. Tobacco abuse. 8. History of depression with low dose Xanax in the past. CONSULTS: Dr. Quezada. PROCEDURES: 1. Echocardiography report: Normal LV cavity size. Ejection fraction 55% with asymmetric LV hypertrophy, diastolic dysfunction. No significant valvular heart disease seen. 2. Carotid Dopplers: No significant plaque noted. No hemodynamics stenosis in either internal carotid system. 3. MRI of the brain: Chronic microvascular ischemic changes. 4. CT pulmonary angiogram: No PE, aspiration bronchitis. 5. CT head: No acute process. 6. Chest x-ray: Prior C-spine surgery changes, nothing acute. BRIEF HISTORY: Please see the H and P that was done by hospitalist. In brief he is a 68-year-old white male came in with syncope spell associated with injuries to the head as well as to the knee with abrasions. He has elevated CK. There is a questionable seizure activity. He was admitted in telemetry and his hospital course as follows. HOSPITAL COURSE: 1. He was completely worked up for neurological which includes MRI, EEG and carotid Dopplers. There is no evidence of acute neurological process. 2. Mild elevated CK and given IV fluids. Follow up CK came back normal without any renal dysfunction. 3. Aspiration bronchitis, probably from seizure and he was given IV antibiotics. Follow up chest x-ray stable. 4. His heart rate was low on metoprolol. I continued decision support manager. There was no evidence of cardiac arrhythmias. 5. His hemodynamics were stable. At this time, all the workup was negative. I am going to continue to pursue the cardiac workup which includes 30 day loop monitor and a stress test as an outpatient. LABS: CBC: White cell count 7.4, hematocrit 44, platelets 243,000. Sodium 140, potassium 3.1, BUN 10, creatinine 0.8, glucose 113. Hemoglobin A1c 7.2. Liver function tests were normal. Triglycerides 111, cholesterol 138, LDL 87, HDL 29. The patient continues to smoke. RECOMMENDATION: Nicotine cessation programs. He is not interested in flu and pneumonia vaccines and patient was discharged home in a stable condition with the following instructions. 1. Trazodone 50 mg at bedtime. 2. Lisinopril 40 daily. 3. Amlodipine 10 daily. 4. Metformin 500 p.o. b.i.d. 5. Discontinue atenolol. 6. Paxil 20 daily. 7. Multivitamin 1 tablet daily. 8. Discontinue gabapentin. 9. Outpatient a stress test and a 30-day loop monitor and follow up in my office in 10 days. cc: Dilan Pope MD
--- NOTE | 2019-03-22 10:04 | EKG Report ---
Test Performed on : 03/12/2019 1:38:55 PM Test Reason : ED. No order in [place] Blood Pressure : / mmHG Vent. Rate : 106 BPM Atrial Rate : 106 BPM P-R Int : 134 ms QRS Dur : 096 ms QT Int : 364 ms P-R-T Axes : 038 -25 030 degrees QTc Int : 483 ms Sinus tachycardia. Inferior infarct , age undetermined Abnormal ECG No previous ECGs available Unconfirmed Result
--- NOTE | 2019-03-28 15:23 | PROVIDER DOCUMENTATION ---
This chart was entered by Babs Pendleton Scribe, acting as scribe for Jonathan Reyes MD. HPI-Neurological Disorder <Matt Henson - Last Filed: 03/12/19 19:23> - General Source: patient, EMS - History of Present Illness-Neuro Onset/Duration: reports: 3 days ago Context: reports: falling, seizure activity Character of Altered Mental Status: reports: confused, seizure activity Any recent trauma/injury?: reports: minor New weakness or altered sensation location:: reports: none Cognitive Baseline: alert, oriented x3 Associated Symptoms: reports: denies symptoms Similar Symptoms Previously?: No Recently seen or treated by another doctor?: No - Seizure First time to have a seizure?: Yes Witnessed seizure?: Yes () How many seizure episodes?: 1 Episode details: reports: unknown duration <Jonathan Reyes - Last Filed: 03/28/19 15:23> - General Stated Complaint: FALL/AMS Time Seen by Provider: 03/12/19 13:38 Allergies/Adverse Reactions: Patient Allergies Allergy/AdvReac Type Severity Reaction Status Date / Time aspirin Allergy Severe SWELLING Verified 03/06/15 23:57 Home Medications: Home Medication List Medication Instructions Recorded Confirmed Last Taken Type Folic Acid 1 mg PO DAILY #0 tablet 03/11/15 03/12/19 Unknown Rx Multivit,Fe,Ca,FA & Min [Thera M 1 each PO DAILY #0 tablet 03/11/15 03/12/19 Unknown Rx Plus] Paroxetine [Paxil] 20 mg PO QHS #30 tablet 03/11/15 03/12/19 Unknown Rx Amlodipine [Norvasc] 10 mg PO DAILY #90 tab 03/18/19 Unknown Rx LISINOpril [Prinivil] 40 mg PO DAILY #90 tab 03/18/19 Unknown Rx Metformin [Glucophage] 500 mg PO BID CC #180 tab 03/18/19 Unknown Rx Trazodone [Desyrel] 50 mg PO HS PRN PRN #60 tab 03/18/19 Unknown Rx - History of Present Illness-Neuro Nature of Presenting Problem: 68yom presents to ED by EMS cc AMS since 5pm last night according to EMS. EMS reports pt told them pt fell 3 days ago, broke an iron board, had a seizure this morning but has no hx of seizures. also reports to EMS that pt refuses to take any meds. EMS reports pt only knew name when they got there and thought the year was 1953 but report pt is more alert in ED. Pt reports he was confused and had headache earlier but is better now. Pt has hx of HTN and DM. (Jonathan Reyes) Review of Systems - Adult - REVIEW OF SYSTEMS - ADULT ROS:: limited per condition Constitutional: reports: see HPI. denies: chills, fever, fatique Eyes: reports: no symptoms reported Ears, Nose, Mouth & Throat: reports: no symptoms reported Cardiovascular: reports: see HPI. denies: chest pain, palpitations Respiratory: reports: no symptoms reported Gastrointestinal: reports: no symptoms reported Genitourinary: reports: no symptoms reported Musculoskeletal: reports: no symptoms reported Integumentary: reports: no symptoms reported Neurological: reports: see HPI, seizure, other (AMS) Psychiatric: reports: no symptoms reported Endocrine: reports: no symptoms reported Hematologic/Lymphatic: reports: no symptoms reported Allergic/Immunologic: reports: no symptoms reported All Other Systems: Reviewed and Negative <Jonathan Reyes - Last Filed: 03/28/19 15:23> Past History - Adult - PAST MEDICAL HISTORY-ADULT Review of Records: reports: Nursing Assessment Review, Medications Reviewed, Social history reviewed & non-contributory. Major Childhood Illnesses: reports: denies history Cardiovascular: reports: HTN Respiratory: reports: denies history Gastrointestinal: reports: denies history Obstetrical/Gynecological: reports: denies history Genitourinary: reports: denies history Musculoskeletal: reports: denies history Neurological: reports: denies history Endocrine/Immune: reports: Diabetes Other Conditions: reports: denies history - PRIOR SURGERIES/PROCEDURES Surgical/Procedure History: reports: orthopedic (extremity) - PRIOR HOSPITALIZATIONS Prior Hospitalizations: reports: none - IMMUNIZATION STATUS Childhood Immunizations: See Nurse Assessment Flu Vaccine: See Nurse Assessment - FAMILY HISTORY Family History: reviewed, not pertinent - SOCIAL HISTORY Smoking: cigarettes, greater than 1 pack/day Provider spent 3-5 mins advising pt. on dangers of tobacco.: Discussed manners to quit use, and f/u contacts for add'l counseling. <Jonathan Reyes - Last Filed: 03/28/19 15:23> Physical Exam- Neurological - Physical Exam-Neuro Initial Vital Signs Reviewed: Yes General Appearance: appears well. negative: anxious, combative Eye Exam: bilateral eye: normal inspection, PERRL, periorbital ecchymosis HENMT: normocephalic/atraumatic, moist mucous membranes Head Injury: negative: active bleeding Respiratory: chest non-tender, normal breath sounds. negative: stridor, wheezing Cardiovascular: normal peripheral pulses, regular rate, rhythm, no edema. negative: bradycardia, tachycardia Abdominal Exam: normal bowel sounds, non tender, soft. negative: rigid, rebound block sealer Exam: normal hearing, normal speech, PERRL Motor/Sensory: no motor deficit, no sensory deficit, no pronator drift Neurologic: block sealer II-XII nml as tested Integumentary: ecchymosis (under both eyes). negative: diaphoresis, jaundice Psych/Mental Status: normal mood/affect. negative: anxious - Glascow Coma Scale Best Eye Response: (4) open spontaneously Best Verbal Response: (5) oriented Best Motor Response: (6) obeys commands Total Glascow Score: 15 <Jonathan Reyes - Last Filed: 03/28/19 15:23> Progress - PLAN OF CARE/RESULTS Result Diagrams: 03/12/19 14:34 03/12/19 14:34 - REASSESSMENT Reassessment #1 Time Reassessed: 19:18 Status: improving (slightly improved per patient) - CONSULTS/PCP/HOSPITALIST Notification #1 *Consult/PCP/Hospitalist*: Dr Allen Time Discussed: 19:23 Consult Disposition: Will see in ED <Matt Henson - Last Filed: 03/12/19 19:23> - PLAN OF CARE/RESULTS Result Diagrams: 03/18/19 06:40 03/18/19 06:40 - EKG 1 Time of EKG reading by physician:: 13:46 EKG Read and Signed by:: Jonathan Reyes EKG Interpretation (*Must complete 3 of following elements*): Abnormal (inferior infarct, age undetermined) Rate: 106 Rhythm: Sinus Tachycardia QRS: normal ME Interval: normal - XRAY 1 XRAY: Bilateral XRAY Study: Chest Impression: See EMR Report (IMPRESSION: Negative exam. Electronically signed by Bk Lau 03/12/2019 2:39 PM) - CT/MRI 1 CT Study: Head Impression: See EMR Report (IMPRESSION: No acute process. This exam was performed using automated exposure control, adjustment of mA or kV according to patient size, and/or use of iterative reconstruction technique Electronically signed by Bk Lau 03/12/2019 2:32 PM) <Jonathan Reyse - Last Filed: 03/28/19 15:23> - PLAN OF CARE/RESULTS Progress/Plan/Lab Results: Orders Category Date Time Status Admit - [facility] Routine AdmDCTranf 03/12/19 21:15 Active Apply Mechanical Device [QM] ORDERED Care 03/12/19 21:22 Active Bedrest [Activity Type] ORDERED Care 03/12/19 21:16 Active Cardiac Monitoring DIRECTED Care 03/12/19 13:38 Completed Oxygen Therapy- ED Nursing DIRECTED Care 03/12/19 13:38 Completed Saline Loc NOW Care 03/12/19 13:38 Completed Use Oxygen.Protocol ORDERED Care 03/12/19 21:21 Active Vital Signs Order Q 4-HR ASSESS Care 03/12/19 21:16 Completed Z-Document. for Tele Applied ORDERED Care 03/12/19 21:17 Completed Clear Liquid Diet Diet 03/12/19 21:17 Completed CHEST-PORTABLE [RAD] Stat Exams 03/12/19 13:[address] ANGIOGRM PULMONARY ARTERIES [CT] Stat Exams 03/12/19 16:[address] HEAD W/O CONTRAST [CT] Stat Exams 03/12/19 13:39 Completed MRI BRAIN W/O CONTRAST [MRI] Stat Exams 03/12/19 21:18 Completed ABG [RESP] Routine Lab 03/12/19 14:20 Completed ALCOHOL BLOOD Stat Lab 03/12/19 14:34 Completed BLOOD CULTURE [BLDCUL] Stat Lab 03/12/19 15:51 Completed CBC WITH ELECTRONIC DIFF [HEME] Stat Lab 03/12/19 14:34 Completed CK PROFILE [SP CHEM] Lab 03/12/19 21:44 Completed CK PROFILE [SP CHEM] Lab 03/13/19 08:08 Completed CK PROFILE [SP CHEM] Lab 03/13/19 13:03 Completed CK PROFILE [SP CHEM] Stat Lab 03/12/19 14:34 Completed COMPREHENSIVE METABOLIC PANEL [CHEM] Stat Lab 03/12/19 14:34 Completed LACTATE, PLASMA [CHEM] Stat Lab 03/12/19 14:34 Completed MAGNESIUM [CHEM] Stat Lab 03/12/19 14:34 Completed PROTIME WITH INR [COAG] Stat Lab 03/12/19 14:34 Completed PTT [COAG] Stat Lab 03/12/19 14:34 Completed SPUTUM CULTURE WITH GRAM STAIN [RM] Routine Lab 03/13/19 08:15 Completed TROPONIN T Lab 03/12/19 21:44 Completed TROPONIN T Lab 03/13/19 08:08 Completed TROPONIN T Lab 03/13/19 13:03 Completed TROPONIN T Stat Lab 03/12/19 14:34 Completed URINALYSIS W/POSS RFLX CULT [URINALYSIS] Stat Lab 03/12/19 16:26 Completed URINE DRUG SCREEN Stat Lab 03/12/19 16:26 Completed 0.9% Sodium Chloride Inj [Ns] 1,000 ml Med 03/12/19 21:30 Discontinued IV 75 mls/hr Atenolol [Tenormin] Med 03/13/19 09:00 Discontinued 25 mg PO DAILY Folic Acid Med 03/13/19 09:00 Discontinued 1 mg PO DAILY Gabapentin [Neurontin] Med 03/12/19 21:15 Discontinued 200 mg PO TID@0900,1500,2100 LISINOpril [Prinivil] Med 03/13/19 09:00 Discontinued 40 mg PO DAILY Labetalol Med 03/12/19 21:23 Discontinued 20 mg IV Q4H PRN PRN Multivit,Fe,Ca,FA & Min [Thera M Plus] Med 03/13/19 09:00 Discontinued 1 each PO DAILY Pantoprazole [Protonix] Med 03/12/19 21:30 Discontinued 40 mg IV Q24H Paroxetine [Paxil] Med 03/13/19 21:00 Discontinued 20 mg PO QHS Piperacillin/Tazobactam [Zosyn] 3.375 gm Med 03/12/19 17:00 Discontinued 0.9% Sodium Chloride Inj [Ns] 50 ml IV NOW Piperacillin/Tazobactam [Zosyn] 3.375 gm Med 03/12/19 23:00 Discontinued 0.9% Sodium Chloride Inj [Ns] 50 ml IV Q6H Sodium Chloride 0.9% Med 03/12/19 21:30 Discontinued 10 ml INJ DIRECTED Altered Mental Status Stat Oth 03/12/19 13:38 Ordered Telemetry [OM.EQ] Routine Oth 03/12/19 21:17 Active Carotid Ultrasound Routine Ther 03/12/19 21:19 Completed Echo Spec/Color Doppler Routine Ther 03/12/19 21:19 Completed Transfer/Admit Order [TRANSFER] Routine Transfer 03/12/19 21:16 Completed Departure - Departure Time of Disposition Decision: 19:21 - Critical Care Note This patient required my direct & personal management of CC.: No <Matt Henson - Last Filed: 03/12/19 19:23> - Departure Date of Disposition Decision: 03/12/19 Certified Medical Emergency: Emergent <Jonathan Reyes - Last Filed: 03/28/19 15:23> - Departure DIAGNOSIS: Altered mental status Aspiration pneumonia Qualifiers: Aspiration pneumonia type: due to gastric secretions Laterality: right Lung location: unspecified part of lung Qualified Code(s): J69.0 - Pneumonitis due to inhalation of food and vomit Disposition: ADMITTED INPATIENT 09 Condition: Fair Attestation - Physician/ CRISTOFER Attestation Patient care was provided by Advanced Practice Provider:: No The physician spent face to face time with patient:: Yes Advanced Practice Provider documentation review:: Supervising physician onsite and consulted in the evaluation and care of this patient. The physician did have a face to face encounter with the patient. <Matt Henson - Last Filed: 03/12/19 19:23> - Physician/ CRISTOFER Attestation Patient care was provided by Advanced Practice Provider:: No The physician spent face to face time with patient:: Yes Advanced Practice Provider documentation review:: Supervising physician onsite and consulted in the evaluation and care of this patient. The physician did have a face to face encounter with the patient. <Jonathan Reyes - Last Filed: 03/28/19 15:23> - NIH Stroke Scale NIH Type: Initial Evaluation Level of Consciousness: 0-Alert <Jonathan Reyes - Last Filed: 03/28/19 15:23> This chart was documented by the indicated scribe, (Babs Pendleton Scribe) and accurately reflects the services I performed and decisions made by , Jonathan Reyes MD, as attested by the provider's signature.
== END 2019-03-18 10:13 | disposition home or self-care (01) ==
LOC: SUPCPDRO → ED 13:27 → 4N 21:41 → SUATTDRO 21:41
PROVIDERS: ADMIT Internal Medicine; ATTEND Internal Medicine